=== PATIENT | male | born 1950 | race Caucasian/White ===

== ENCOUNTER 2017-06-17 11:47 | Emergency (ER) | payer OTHER ==
[~2017-06-17] VITALS: Ht 198.1 cm; Wt 121.5 kg
[~2017-06-17 11:47] MED LIST: AUGM875T PO; LISI-363 PO; LORTA5 PO; PRAV20 PO
[2017-06-17 11:53] VITALS: BP 166/84; PULSE 69; RESP 16; TEMP 97.9; O2SAT 96
[2017-06-17 12:10] VITALS: RESP 16; O2SAT 97
[2017-06-17] MEDS ORDERED: PRAV20TA2 PO (12:14)
[2017-06-17] MEDS ORDERED: LISI-515 PO (12:14)
[2017-06-17] MEDS ORDERED: METF1000 PO (12:14)
[2017-06-17] MEDS ORDERED: VITA1000 PO (12:14)
[2017-06-17] MEDS ORDERED: RA BTAB PO (12:14)
[2017-06-17] MEDS ORDERED: ASPI81TA23 PO (12:14)
[2017-06-17] MEDS ORDERED: ACETAMINOPHEN 325 MG TAB PO ONE (12:30)
[2017-06-17] MEDS ORDERED: SODIUM CHLORIDE 0.9% FLUSH 10 ML FLUSH IVF PRN (12:30)
[2017-06-17 12:37] VITALS: BP 149/88; PULSE 67; RESP 16; O2SAT 97
[2017-06-17 13:05] LABS: AUTOMATED NEUTROPHIL # 3.7 TH/MM3 (1.8-7.7); BASOPHIL # 0.1 TH/MM3 (0-0.2); BASOPHIL % 0.8 % (0.0-2.0); EOSINOPHIL # 0.3 TH/MM3 (0-0.4); EOSINOPHIL % 3.7 % (0.0-4.0); HEMATOCRIT 42.3 % (39.0-51.0); LYMPH % 32.8 % (9.0-44.0); LYMPHOCYTE # 2.3 TH/MM3 (1.0-4.8); MEAN CELL VOLUME 88.5 FL (80.0-100.0); MEAN CORPUSCULAR HEMOGLOBIN 30.2 PG (27.0-34.0); MEAN CORPUSCULAR HGB CONC 34.1 % (32.0-36.0); MONO % 8.6 % (0.0-8.0); NEUT % 54.1 % (16.0-70.0); PLATELET COUNT 234 TH/MM3 (150-450); RED BLOOD COUNT 4.78 MIL/MM3 (4.50-5.90); RED CELL DISTRIBUTION WIDTH 12.6 % (11.6-17.2)
[2017-06-17 13:06] LABS: HEMO FLAGS DIFF FINAL
--- NOTE | 2017-06-17 13:07 | RADRPT ---
EXAM DATE/TIME: 06/17/2017 12:45 [facility] COMPARISON: No previous studies available for comparison. INDICATIONS : Syncopal episode. Neuro symptoms MEDICAL HISTORY : Hypertension. Hypercholesterolemia. Hepatitis C. Diabetic. Chronic back pain. SURGICAL HISTORY : None. ENCOUNTER: Initial ACUITY: 1 day PAIN SCORE: 0/10 LOCATION: chest FINDINGS: A single view of the chest demonstrates the lungs to be symmetrically aerated without evidence of mas s, infiltrate or effusion. The cardiomediastinal contours are unremarkable. Osseous structures are intact. CONCLUSION: No acute disease. Derian Josue MD on June 17, 2017 at 13:05 Board Certified Radiologist. This report was verified electronically.
--- NOTE | 2017-06-17 13:09 | RADRPT ---
EXAM DATE/TIME: 06/17/2017 12:55 [facility] COMPARISON: No previous studies available for comparison. INDICATIONS : Cephalgia, dizziness, light headed, and disoriented since this morning. Evaluate for cerebrovascular accident. RADIATION DOSE: 62.27 CTDIvol (mGy) MEDICAL HISTORY : Hepatitis C. Hypertension. Diabetes mellitus type 2. SURGICAL HISTORY : None. ENCOUNTER: Initial ACUITY: 1 day PAIN SCALE: 5/10 LOCATION: cranial TECHNIQUE: Multiple contiguous axial images were obtained of the head. Using automated exposure control and adj ustment of the mA and/or kV according to patient size, radiation dose was kept as low as reasonably a chievable to obtain optimal diagnostic quality images. DICOM format image data is available electro nically for review and comparison. FINDINGS: CEREBRUM: The ventricles are normal for age. No evidence of midline shift, mass lesion, hemorrhage or acute in farction. No extra-axial fluid collections are seen. POSTERIOR FOSSA: The cerebellum and brainstem are intact. The 4th ventricle is midline. The cerebellopontine angle i s unremarkable. EXTRACRANIAL: The visualized portion of the orbits is intact. SKULL: The calvaria is intact. No evidence of skull fracture. CONCLUSION: No acute intracranial disease. Derian Josue MD on June 17, 2017 at 13:07 Board Certified Radiologist. This report was verified electronically.
[2017-06-17 13:12] LABS: CHLORIDE 102 MEQ/L (98-107); SODIUM (NA) 138 MEQ/L (136-145)
[2017-06-17 13:14] LABS: PROTHROMBIN TIME - PATIENT 10.5 SEC (9.8-11.6)
[2017-06-17 13:15] LABS: ANION GAP 11 MEQ/L (5-15); BICARBONATE 25.5 MEQ/L (21.0-32.0); BLOOD UREA NITROGEN 13 MG/DL (7-18)
[2017-06-17] MEDS ORDERED: MECLIZINE HCL 25 MG TAB PO ONE (13:15)
--- NOTE | 2017-06-17 13:15 | PD ---
HPI Chief Complaint: Neuro Symptoms/ Deficits Time Seen by Provider: 12:09 Travel History International Travel<30 days: No Contact w/Intl Traveler<30days: No Traveled to known affect area: No History of Present Illness HPI 66-year-old male came to the emergency room with history of dizziness and left- sided decreased sensation since past 36 hours. Patient says this started at 2 AM Thursday. He was asleep when he suddenly started to get headache followed by the dizziness. Patient usually does not get headaches or dizziness. He has not felt same since then. He has this constant feeling of wooziness and confusion and left-sided decreased sensation. I did not get better patient decided to come to the emergency room. His concern was stroke. Vital signs are stable. Patient has history of diabetes, hypertension and high cholesterol. His vital signs have been stable. Patient did not have a syncopal episode or fall. PFSH Past Medical History Narrative Medical List of his past medical, surgical, social and family history is reviewed from the nursing note. Hx Anticoagulant Therapy: Yes (asa 81mg) Cancer: No Cardiovascular Problems: Yes (htn on meds) High Cholesterol: Yes Diabetes: Yes Patient Takes Glucophage: Yes (METFORMIN) Endocrine: No Genitourinary: No Hepatitis: Yes (HX OF HEPATITIS C 5 YRS AGO ) Hiatal Hernia: No Hypertension: Yes Musculoskeletal: Yes (CHRONIC BACK PAIN) Neurologic: No Psychiatric: No Reproductive: No Respiratory: Yes Thyroid Disease: No Social History Alcohol Use: Yes (SOCIAL) Tobacco Use: No Substance Use: Yes Allergies-Medications (Allergen,Severity, Reaction): Coded Allergies: No Known Allergies (Verified Adverse Reaction, Unknown, 06/17/17) Comments No known drug allergies. Reported Meds & Prescriptions Reported Meds & Active Scripts Active Zithromax Z-Bob (Azithromycin) 250 Mg Dspk 250 Mg PO DIRECTED 500 MG (2 tabs) day 1, then 1 tab days 2-5. Meclizine (Meclizine HCl) 25 Mg Tab 25 Mg PO TID PRN 5 Days Reported B Complex (Vitamin B Complex) 1 Each Tablet 1 Tab PO DAILY Vitamin D-1000 (Cholecalciferol) 1,000 Unit Tab 2,000 Units PO DAILY Aspirin EC (Aspirin) 81 Mg Tabdr 81 Mg PO DAILY Metformin (Metformin HCl) 1,000 Mg Tab 1,000 Mg PO DAILY With a meal Pravastatin 20 Mg Tab 20 Mg PO HS Lisinopril 20 Mg Tab 20 Mg PO DAILY Narrative Medication List of his home medications reviewed from the nursing note. Review of Systems Except as stated in HPI: all other systems reviewed are Neg Neurologic: Positive: Dizziness Physical Exam Narrative GENERAL: Awake, alert, anxious SKIN: Focused skin assessment warm/dry. HEAD: Atraumatic. Normocephalic. EYES: Pupils equal and round. No scleral icterus. No injection or drainage. ENT: No nasal bleeding or discharge. Mucous membranes pink and moist. NECK: Trachea midline. No JVD. CARDIOVASCULAR: Regular rate and rhythm. No murmur appreciated. RESPIRATORY: No accessory muscle use. Clear to auscultation. Breath sounds equal bilaterally. GASTROINTESTINAL: Abdomen soft, non-tender, nondistended. Hepatic and splenic margins not palpable. MUSCULOSKELETAL: No obvious deformities. No clubbing. No cyanosis. No edema. NEUROLOGICAL: Awake and alert. No obvious cranial nerve deficits. Motor grossly within normal limits. Normal speech. NIH stroke score of 1 due to slight subjective decreased sensation on the left upper and lower extremity PSYCHIATRIC: Appropriate mood and affect; insight and judgment normal. Data Data Last Documented VS Orders Orders Electrocardiogram (06/17/17 12:28) Prothrombin Time / Inr (Pt) (06/17/17 12:28) Complete Blood Count With Diff (06/17/17 12:28) Basic Metabolic Panel (Bmp) (06/17/17 12:28) Troponin I (06/17/17 12:28) Urinalysis - C+S If Indicated (06/17/17 12:28) Ct Brain W/O Iv Contrast(Rout) (06/17/17 12:28) Chest, Single Ap (06/17/17 12:28) Ecg Monitoring (06/17/17 12:28) Iv Access Insert/Monitor (06/17/17 12:28) Oximetry (06/17/17 12:28) Sodium Chloride 0.9% Flush (Ns Flush) (06/17/17 12:30) Acetaminophen (Tylenol) (06/17/17 12:30) Meclizine (Antivert) (06/17/17 13:15) Mra Brain W/O Contrast (Cow) (06/17/17 ) Mri Brain W/O Contrast (06/17/17 ) Ed Discharge Order (06/17/17 16:57) Labs Laboratory Tests Test 06/17/17 12:55 06/17/17 14:00 White Blood Count 7.0 TH/MM3 Red Blood Count 4.78 MIL/MM3 Hemoglobin 14.4 GM/DL Hematocrit 42.3 % Mean Corpuscular Volume 88.5 FL Mean Corpuscular Hemoglobin 30.2 PG Mean Corpuscular Hemoglobin Concent 34.1 % Red Cell Distribution Width 12.6 % Platelet Count 234 TH/MM3 Mean Platelet Volume 8.5 FL Neutrophils (%) (Auto) 54.1 % Lymphocytes (%) (Auto) 32.8 % Monocytes (%) (Auto) 8.6 % Eosinophils (%) (Auto) 3.7 % Basophils (%) (Auto) 0.8 % Neutrophils # (Auto) 3.7 TH/MM3 Lymphocytes # (Auto) 2.3 TH/MM3 Monocytes # (Auto) 0.6 TH/MM3 Eosinophils # (Auto) 0.3 TH/MM3 Basophils # (Auto) 0.1 TH/MM3 CBC Comment DIFF FINAL Differential Comment Prothrombin Time 10.5 SEC Prothromb Time International Ratio 1.0 RATIO Blood Urea Nitrogen 13 MG/DL Creatinine 0.93 MG/DL Random Glucose 117 MG/DL Calcium Level 9.3 MG/DL Sodium Level 138 MEQ/L Potassium Level 4.0 MEQ/L Chloride Level 102 MEQ/L Carbon Dioxide Level 25.5 MEQ/L Anion Gap 11 MEQ/L Estimat Glomerular Filtration Rate 81 ML/MIN Troponin I LESS THAN 0.02 NG/ML Urine Collection Type CLEAN CATCH Urine Color YELLOW Urine Turbidity CLEAR Urine pH 7.0 Urine Specific Occidental 1.011 Urine Protein NEG mg/dL Urine Glucose (UA) NEG mg/dL Urine Ketones NEG mg/dL Urine Occult Blood NEG Urine Nitrite NEG Urine Bilirubin NEG Urine Leukocyte Esterase NEG Microscopic Urinalysis Comment CULT NOT INDICATED MDM Medical Decision Making Medical Screen Exam Complete: Yes Emergency Medical Condition: Yes Medical Record Reviewed: Yes Interpretation(s) Twelve-lead EKG was read by me. Normal sinus rhythm, normal axis, nonspecific ST-T wave changes. Heart rate of 60 bpm. Differential Diagnosis CVA, BP V Narrative Course 4:52 PM patient had his CAT scan and blood test results back which were within normal limit. I ordered an MRI and MRA to rule out lacunar infarct. MRI shows mild demyelinating disease but otherwise negative. Awaiting for the MRA report. Small amount of left maxillary sinusitis. If the MRI is negative patient will be discharged home on prescription. 5:30 PM MRA was negative. I discussed with the patient about the findings on the MRI and explained to them what a demyelinating disease could be like especially giving the example of multiple sclerosis. I have impressed on the fact that his primary care should refer him to a neurologist. A copy of the MRI report was also given to the patient so that he can show it to his primary care. I answered all the questions to the best of my ability. Patient will be discharged Procedures EKG Prior to Arrival: No Diagnosis Primary Impression: Dizziness Additional Impressions: Sinusitis Qualified Codes: J01.00 - Acute maxillary sinusitis, unspecified Demyelinating changes in brain Referrals: Primary Care Physician 2 days Additional Instructions: Return to the ER if condition worsens or any other new concerns. Please follow- up with your primary care and asked for referral with a neurologist. The MRI showed demyelinating disease of the white matter. The medication as per the prescription direction. He should not be driving to give been cleared by your primary care or the neurologist. Med/Other Pt SpecificInfo: Prescription(s) given Scripts Azithromycin (Zithromax Z-Bob) 250 Mg Dspk 250 MG PO DIRECTED for Infection, #1 DSPK 0 Refills 500 MG (2 tabs) day 1, then 1 tab days 2-5. Prov: Krystin Cobos MD 06/17/17 Meclizine (Meclizine) 25 Mg Tab 25 MG PO TID Y for VERTIGO for 5 Days, TAB 0 Refills Prov: Krystin Cobos MD 06/17/17 Disposition: 01 DISCHARGE HOME Condition: Stable Krystin Cobos MD Jun 17, 2017 13:15
[2017-06-17 13:18] LABS: GLOMERULAR FILTRATION RATE 81 ML/MIN (>89)
[2017-06-17 13:37] VITALS: BP 151/88; PULSE 61; RESP 16; O2SAT 97
[2017-06-17 14:16] LABS: BLOOD, URINE NEG (NEG); GLUCOSE,URINE NEG (NEG); KETONE, URINE NEG (NEG); NITRITE,URINE NEG (NEG)
[2017-06-17 14:25] LABS: METHOD OF COLLECTION CLEAN CATCH; URINE COLOR YELLOW (YELLW/STRAW)
[2017-06-17 14:27] LABS: COMMENT (UR) CULT NOT INDICATED; CULTURE IF INDICATED CULT NOT INDICATED
[2017-06-17 14:37] VITALS: BP 126/77; PULSE 62; RESP 16; O2SAT 96
--- NOTE | 2017-06-17 16:24 | RADRPT ---
EXAM DATE/TIME: 06/17/2017 15:23 [facility] COMPARISON: No previous studies available for comparison. INDICATIONS : CVA. Headache, dizziness, balance issues x 1 day MEDICAL HISTORY : Hypertension. Diabetes mellitus type 2. Cholesterol SURGICAL HISTORY : Septum ENCOUNTER: Initial ACUITY: 1 day PAIN SCORE: 0/10 LOCATION: cranial TECHNIQUE: Multiplanar, multisequence MRI of the brain was performed without contrast. FINDINGS: CEREBRUM: The ventricles are normal for age. No evidence of midline shift, mass lesion, hemorrhage or acute in farction. No extraaxial fluid collections are seen. The pituitary gland and suprasellar cistern are normal in configuration. WHITE MATTER: There is some punctate areas of increased T2 signal in the white matter most consistent with mild florencio rovascular ischemic demyelinative change. No significant signal abnormalities are seen in the white m atter. POSTERIOR FOSSA: The cerebellum and brainstem are intact. The 4th ventricle is midline. The cerebellopontine angle is unremarkable. The cerebellar tonsils are normal in position. DIFFUSION IMAGING: No focal areas of restricted diffusion are seen. No evidence of acute infarction. EXTRACRANIAL: The visualized portions of the orbits are intact. The exam does demonstrate a small amount of fluid w ithin the left maxillary sinus and fluid within the mastoid air cells on the left. CONCLUSION: 1. No findings to indicate acute cortical infarction. 2. Punctate areas of increased T2 signal in the white matter most consistent with mild microvascular ischemic demyelinative change. 3. Small amount of fluid within the left maxillary sinus and mastoid air cells on the left. Willie Garza MD on June 17, 2017 at 16:17 Board Certified Radiologist. This report was verified electronically.
[2017-06-17 16:40] VITALS: BP 133/85; PULSE 82; RESP 16; O2SAT 97
--- NOTE | 2017-06-17 16:52 | RADRPT ---
EXAM DATE/TIME: 06/17/2017 15:23 [facility] COMPARISON: No previous studies available for comparison. INDICATIONS : CVA. MEDICAL HISTORY : Hypertension. Diabetes mellitus type 2. Cholesterol SURGICAL HISTORY : Septum ENCOUNTER: Initial ACUITY: 1 day PAIN SCORE: 0/10 LOCATION: cranial Please note a normal MRA of the brain does not entirely exclude the possibility of a small aneurysm, nor the possibility of distal intracranial vessel disease. TECHNIQUE: 3D time of flight MRA was performed. Source images, multiplanar STS MIP, and 3D volume MIP reconstru ctions were reviewed. FINDINGS: There is excellent visualization of the major intracranial arteries out to the second-order branch ve ssels. There is no evidence for aneurysm, vessel truncation or stenosis, and no evidence for vascula r malformation. CONCLUSION: Normal examination. Cholo Caballero MD on June 17, 2017 at 16:49 Board Certified Radiologist. This report was verified electronically.
[2017-06-17] MEDS ORDERED: MECL-62 PO (16:56)
[2017-06-17] MEDS ORDERED: ZITHTAB PO (16:56)
--- NOTE | 2017-06-18 14:10 | EKG ---
Date Performed: 06/17/2017 Time Performed: 12:38:29 PTAGE: 66 years EKG: Sinus rhythm NORMAL ECG Compared to prior tracing no significant change PREVIOUS TRACING : 12/19/2014 06.40 DOCTOR: Lesa Marin Interpretating Date/Time 06/18/2017 14:08:26
== END 2017-06-17 17:19 | disposition home or self-care (01) ==
LOC: PHED 11:47
DX: J01.00 Acute maxillary sinusitis, unspecified (principal); G37.8 Other specified demyelinating diseases of central nervous system; E11.9 Type 2 diabetes mellitus without complications; E78.00 Pure hypercholesterolemia, unspecified; I10 Essential (primary) hypertension; B19.20 Unspecified viral hepatitis C without hepatic coma; Z79.82 Long term (current) use of aspirin; Z79.84 Long term (current) use of oral hypoglycemic drugs
CPT/HCPCS: 70450; 70544; 70551; 71010; 80048; 81001; 84484; 85025; 85610; 93005; 99285